=== PATIENT | male | born 1955 | race Caucasian/White ===

== ENCOUNTER 2017-06-21 06:59 | Inpatient (IN) | payer BC ==
[~2017-06-21] VITALS: Ht 182.9 cm; Wt 103.0 kg
[~2017-06-21 06:59] MED LIST: No meds per pt.
[2017-06-21] MEDS ORDERED: THROMBIN 5,000 UNIT VIAL TP ONE (07:16)
[2017-06-21] MEDS ORDERED: BACITRACIN 50,000 UNIT ONE (07:16)
[2017-06-21] MEDS ORDERED: BUPIVACAINE/PF-EPI 0.5% 1:200K ONE (07:16)
[2017-06-21 07:25] VITALS: BP 142/83
[2017-06-21] MEDS ORDERED: LACTATED RINGERS 1,000 ML IV SCH (07:28)
[2017-06-21] MEDS ORDERED: LIDOCAINE-MPF 1%, 2ML INFIL ONE (07:30)
[2017-06-21] MEDS ORDERED: FAMOTIDINE 20 MG TABLET ONE (09:13)
[2017-06-21] MEDS ORDERED: ONDANSETRON ODT 8 MG ONE (09:13)
[2017-06-21] MEDS ORDERED: GABAPENTIN 300 MG CAPSULE ONE (09:13)
[2017-06-21] MEDS ORDERED: OxyconTIN ER 10 MG TAB.ER ONE (09:15)
[2017-06-21] MEDS ORDERED: OXYcodone IR 5MG TABLET PO ONE (09:30)
[2017-06-21] MEDS ORDERED: ONDANSETRON ODT 8 MG PO ONE (09:30)
[2017-06-21] MEDS ORDERED: GABAPENTIN 300 MG CAPSULE PO ONE (09:30)
[2017-06-21] MEDS ORDERED: FAMOTIDINE 20 MG TABLET PO ONE (09:30)
[2017-06-21] MEDS ORDERED: ACETAMINOPHEN 500 MG TABLET PO ONE (09:30)
[2017-06-21] MEDS ORDERED: FENTANYL PF 100 MCG/2ML ONE (09:33)
[2017-06-21] MEDS ORDERED: MIDAZOLAM 1 MG/ML, 2ML ONE (09:33)
[2017-06-21] MEDS ORDERED: ROCURONIUM 10 MG/ML,10ML ONE (09:38)
[2017-06-21] MEDS ORDERED: MIDAZOLAM 1 MG/ML, 2ML IV PRN (10:30)
[2017-06-21] MEDS ORDERED: PROMETHAZINE 12.5 MG SUPP PR PRN (10:30)
[2017-06-21] MEDS ORDERED: ONDANSETRON 2MG/ML, 2ML IVPush PRN (10:30)
[2017-06-21] MEDS ORDERED: HYDROcodone/APAP 7.5-325MG/15ML UDC PO PRN (10:30)
[2017-06-21] MEDS ORDERED: LABETALOL 5MG/ML, 20ML IV PRN (10:30)
[2017-06-21] MEDS ORDERED: DIAZEPAM 5 MG/ML, 2ML IVPush PRN (10:30)
[2017-06-21] MEDS ORDERED: ALBUTEROL SULFATE 2.5 MG/3 ML NPPB PRN (10:30)
[2017-06-21] MEDS ORDERED: FENTANYL PF 100 MCG/2ML IV PRN (10:30)
[2017-06-21] MEDS ORDERED: hydrALAzine 20 MG/ML, 1ML IV PRN (10:30)
[2017-06-21] MEDS ORDERED: MORPHINE SULFATE 4 MG/ML, 1ML IVPush PRN (10:30)
[2017-06-21] MEDS ORDERED: EPHEDRINE 50 MG/ML, 1ML IVPush PRN (10:30)
[2017-06-21] MEDS ORDERED: MEPERIDINE/PF 25MG/0.5ML IVPush PRN (10:30)
[2017-06-21] MEDS ORDERED: OXYcodone 5 MG/5 ML ORAL.SOL UDC PO PRN (10:30)
[2017-06-21] MEDS ORDERED: GLYCOPYRROLATE 0.2MG/1ML, 5ML ONE (11:00)
[2017-06-21] MEDS ORDERED: SUCCINYLCHOLINE 20 MG/ML, 10ML ONE (11:00)
[2017-06-21] MEDS ORDERED: DEXAMETHASONE 4 MG/ML, 1ML ONE (11:00)
[2017-06-21] MEDS ORDERED: PROPOFOL 10 MG/ML, 20ML ONE (11:00)
[2017-06-21] MEDS ORDERED: CEFAZOLIN 1,000 MG ONE (11:00)
[2017-06-21] MEDS ORDERED: NEOSTIGMINE 1 MG/ML, 10ML ONE (11:00)
[2017-06-21] MEDS ORDERED: METHOCARBAMOL 750 MG TABLET ONE (12:27)
[2017-06-21] MEDS: METHOCARBAMOL 750 MG TABLET PO PRN ×2 (12:33→20:45)
[2017-06-21] MEDS ORDERED: HYDROmorphone 2 MG/ML, 1ML IM PRN (13:30)
[2017-06-21] MEDS ORDERED: OXYcodone/APAP 5/325MG TABLET PO PRN (13:30)
[2017-06-21] MEDS ORDERED: DIPHENHYDRAMINE 50 MG/ML, 1ML IVPush PRN (13:30)
[2017-06-21] MEDS ORDERED: ONDANSETRON 2MG/ML, 2ML IV PRN (13:30)
[2017-06-21] MEDS ORDERED: BISACODYL 10 MG SUPP PR PRN (13:30)
[2017-06-21] MEDS ORDERED: HYDROmorphone 2MG TABLET PO PRN (13:30)
[2017-06-21] MEDS ORDERED: PROMETHAZINE 25 MG/ML, 1ML IM PRN (13:30)
[2017-06-21] MEDS ORDERED: CEFAZOLIN PMX 1GM/50ML 50 ML IVPB SCH (13:30)
[2017-06-21] MEDS ORDERED: DIPHENHYDRAMINE 50 MG CAPSULE PO PRN (13:30)
[2017-06-21] MEDS ORDERED: DIPHENHYDRAMINE 50 MG/ML, 1ML IM PRN (13:30)
[2017-06-21] MEDS ORDERED: HYDROcodone/APAP 5/325 TABLET PO PRN (13:30)
[2017-06-21] MEDS ORDERED: MAGNESIUM HYDROXIDE 8%, 30ML UDC PO PRN (13:30)
[2017-06-21] MEDS ORDERED: CEFAZOLIN 1,000 MG in SODIUM CHLORIDE 0.9% 50 ML IVPB SCH (14:00)
[2017-06-21] MEDS ORDERED: METH750T87 PO (14:05)
[2017-06-21] MEDS ORDERED: OXYC-302 PO (14:05)
[2017-06-21] MEDS: NS + 20MEQ KCL 1,000 ML IV SCH (14:20)
[2017-06-21 15:12] VITALS: BP 132/73
[2017-06-21] MEDS: CEFAZOLIN PMX 1GM/50ML 50 ML IVPB SCH (16:58)
[2017-06-21 20:30] VITALS: BP 125/75
[2017-06-22 00:21] VITALS: BP 112/63
[2017-06-22] MEDS: CEFAZOLIN PMX 1GM/50ML 50 ML IVPB SCH (02:18)
[2017-06-22 04:00] VITALS: BP 109/65
[2017-06-22] MEDS: METHOCARBAMOL 750 MG TABLET PO PRN (05:12)
[2017-06-22] MEDS: NS + 20MEQ KCL 1,000 ML IV SCH (05:35)
[2017-06-22] MEDS ORDERED: SENNA/DOCUSATE TABLET PO SCH (09:00)
[2017-06-22 09:10] VITALS: BP 100/61
[2017-06-22 12:25] VITALS: BP 132/73
[2017-06-23] MEDS ORDERED: METHOCARBAMOL 750 MG TABLET PO SCH (20:30)
== END 2017-06-22 13:01 | disposition home or self-care (01) | DRG 520 ==
LOC: OUT 06:59 → 4NOR 12:49 → OUT 12:51 → 4NOR 12:53
PROVIDERS: ADMIT Neurological Surgery; ATTEND Neurological Surgery
PROC: 01NR0ZZ Release Sacral Nerve, Open Approach (ICD-10-PCS; 2017-06-21)
PROC: 01NB0ZZ Release Lumbar Nerve, Open Approach (ICD-10-PCS; 2017-06-21)
PROC: 0SB20ZZ Excision of Lumbar Vertebral Disc, Open Approach (ICD-10-PCS; principal; 2017-06-21 10:00)
DX: M47.27 Other spondylosis with radiculopathy, lumbosacral region (principal); M48.061 Spinal stenosis, lumbar region without neurogenic claudication; M48.07 Spinal stenosis, lumbosacral region
CPT/HCPCS: 72100; J0690; J1100; J2250; J2270; J2704; J2710; J3010; J3480; J3490; Q0162; J0330; J7120